=== PATIENT | female | born 1975 | race Caucasian/White ===

== ENCOUNTER → 2018-06-06 09:56 | Outpatient (CLI) | payer OTHER, SELFPAY ==
[2018-06-06 13:15] LABS: TSH w/ Reflex to FT4 1.96 uIU/mL (0.47-4.68)
== END ==
PROVIDERS: Family Provider Family Medicine; PCP Family Medicine; Visit Provider Family Medicine
DX: E03.9 Hypothyroidism, unspecified (principal)
CPT/HCPCS: 36415; 84443

== ENCOUNTER → 2019-01-03 11:08 | Outpatient (CLI) | payer OTHER, SELFPAY ==
[2019-01-03 12:54] LABS: Thyroid Stimulating Hormone 3.93 uIU/mL (0.47-4.68)
== END ==
PROVIDERS: PCP Family Medicine; Visit Provider Family Medicine
DX: E03.9 Hypothyroidism, unspecified (principal); Z34.90 Encounter for supervision of normal pregnancy, unspecified, unspecified trimester
CPT/HCPCS: 36415; 84443

== ENCOUNTER → 2019-01-28 11:54 | Outpatient (CLI) | payer OTHER, SELFPAY ==
[2019-01-28 12:17] LABS: Add Manual Diff / Slide Review NO; Basophils Absolute Auto 0 /uL (0-100); Basophils Percent Auto 0.4 % (0-2); Eosinophils Absolute Auto 0 /uL (0-450); Eosinophils Percent Auto 0.2 % (2-4); Hematocrit 40.6 % (36-46); Hemoglobin 13.6 g/dL (12.0-16.0); Lymphocytes Absolute Auto 1000 /uL (1100-4500); Lymphocytes Percent Auto 9.1 % (25-40); Mean Corpuscular HGB Conc 33.6 % (30-36); Mean Corpuscular Hemoglobin 30.1 PG (26-34); Mean Corpuscular Volume 89.6 fL (80-100); Monocytes Absolute Auto 500 /uL (0-900); Monocytes Percent Auto 4.1 % (3-14); Neutrophils Absolute Auto 9700 /uL (1500-7000); Neutrophils Percent Auto 86.2 % (50-75); Platelet Count 247 X10^3/uL (150-400); Red Blood Cell Count 4.53 X10^6/uL (4.0-5.2); Red Cell Distribution Width 13.4 % (11.6-14.8); White Blood Cell Count 11.2 X10^3/uL (4.5-11.0)
[2019-01-28 12:22] LABS: Appearance Urine UA CLEAR; Bilirubin Urine UA NEGATIVE (NEGATIVE); Color Urine UA YELLOW; Glucose Urine UA NEGATIVE (Negative); Ketones Urine UA NEGATIVE (NEGATIVE); Leukocyte Esterase Urine UA NEGATIVE (NEGATIVE); Nitrite Urine UA NEGATIVE (Negative); Occult Blood Urine UA NEGATIVE (Negative); Protein Urine UA 1+ (Negative); Specific Gravity Urine UA >=1.030 (1.000-1.035); Urobilinogen Urine UA 0.2 E.U./dL (0.2)
[2019-01-28 14:14] LABS: Free T4, Direct Thyroxine 1.09 ng/dL (0.78-2.19)
[2019-01-28 14:28] LABS: Thyroid Stimulating Hormone 3.55 uIU/mL (0.47-4.68)
[2019-01-28 16:56] LABS: Hepatitis B Surface Antigen NEGATIVE s/c (NEGATIVE)
[2019-01-28 16:57] LABS: Rubella Antibody IgG 55.6 IU/mL (>15)
[2019-01-28 17:15] LABS: HIV 1 and 2 Antibody NEGATIVE (NEGATIVE); Hep C Virus Ab w/Reflex Quant NEGATIVE s/c (NEGATIVE)
[2019-01-30 14:57] LABS: RPR Screen Nonreactive (Nonreactive)
== END ==
PROVIDERS: PCP Family Medicine; Visit Provider Obstetrics & Gynecology
DX: Z34.81 Encounter for supervision of other normal pregnancy, first trimester (principal); E03.9 Hypothyroidism, unspecified
CPT/HCPCS: 36415; 80055; 81003; 84439; 84443; 86703; 86787; 86803; 86850; 86900; 86901; 87086

== ENCOUNTER → 2019-02-11 13:00 | Outpatient (CLI) | payer OTHER, SELFPAY ==
[2019-02-11 16:00] LABS: Free T4, Direct Thyroxine 1.15 ng/dL (0.78-2.19)
[2019-02-11 16:14] LABS: Thyroid Stimulating Hormone 2.72 uIU/mL (0.47-4.68)
== END ==
PROVIDERS: PCP Family Medicine; Visit Provider Obstetrics & Gynecology
DX: E03.9 Hypothyroidism, unspecified (principal)
CPT/HCPCS: 36415; 84439; 84443

== ENCOUNTER → 2019-02-25 12:23 | Outpatient (CLI) | payer OTHER, SELFPAY ==
[2019-02-25 14:10] LABS: Free T4, Direct Thyroxine 1.03 ng/dL (0.78-2.19)
[2019-02-25 14:24] LABS: TSH w/ Reflex to FT4 2.13 uIU/mL (0.47-4.68); Thyroid Stimulating Hormone 2.16 uIU/mL (0.47-4.68)
== END ==
PROVIDERS: PCP Family Medicine; Visit Provider Obstetrics & Gynecology
DX: E03.9 Hypothyroidism, unspecified (principal)
CPT/HCPCS: 36415; 84439; 84443

== ENCOUNTER → 2019-03-27 09:14 | Outpatient (CLI) | payer OTHER, SELFPAY ==
[2019-03-27 11:53] LABS: Free T4, Direct Thyroxine 1.01 ng/dL (0.78-2.19)
[2019-03-27 12:07] LABS: Thyroid Stimulating Hormone 2.04 uIU/mL (0.47-4.68)
[2019-04-02 09:36] LABS: AFP, Serum 29.2 ng/mL; Calc Gestational Age 16.3; Cigarette Smoker N; Donated Egg NOT GIVEN; Donor Egg Age NOT GIVEN; Estriol, Free 0.74 ng/mL; Inhibin A, Dimeric 157 pg/mL; Maternal Weight 212 lbs; Number of Fetuses 1; Previous Pregnancy Down Syndro NOT GIVEN; hCG, MoM 2.42; hCG, Serum 64.7 IU/mL
== END ==
PROVIDERS: PCP Family Medicine; Visit Provider Obstetrics & Gynecology
DX: Z34.82 Encounter for supervision of other normal pregnancy, second trimester (principal); Z3A.16 16 weeks gestation of pregnancy; E03.9 Hypothyroidism, unspecified
CPT/HCPCS: 36415; 82105; 82677; 84439; 84443; 84702; 86336

== ENCOUNTER → 2019-04-22 10:45 | Outpatient (CLI) | payer OTHER, SELFPAY ==
--- NOTE | 2019-04-22 10:47 | DI.US.S_ITS ---
PROCEDURE: US OB >= 14 WEEKS FETUS INDICATIONS: Anatomy Survey OUTSIDE/PRIOR DATING DATA: Last menstrual period (LMP): Unknown. LMP-based estimated date of delivery (ANTHONY): N./A. First dating scan (date and location): 01/29/19. Estimated date of delivery (ANTHONY) from first dating scan: 09/13/19. TECHNIQUE: Real-time scanning was performed of the fetus, with image documentation and biometric measurements. Endovaginal scanning: No COMPARISON: None. FINDINGS: General: A single living intrauterine gestation is present. Presentation: Variable. Placenta: Placental position is right fundal, without previa. Amniotic fluid index: 12.7 cm, normal range is 5-24 cm. heart rate: 137 beats per minute. Maternal cervical canal: 4.6 cm long. Normal lower limit is 2.5 cm. biometrics: Biparietal diameter: 20 weeks 5 days Head circumference: 20 weeks 3 days Abdominal circumference: 20 weeks 6 days Femur length: 19 weeks 3 days Estimated gestational age from initial scan: 19 weeks 3 days Composite gestational age from present scan: 20 weeks 1 day Estimated weight and percentile: 342 g; 89th percentile Measurement variability for biometric dating: +/- 7 days from 14 weeks to 15 weeks 6 days gestation, +/- 10 days from 16 weeks to 21 weeks 6 days gestation, +/- 2 weeks from 22 weeks to 27 weeks 6 days gestation, +/- 3 weeks for 28 weeks gestation or later. weight reference: 4500 g or EFW >90/95% is considered macrosomia or large for gestational age. EFW <10% is small for gestational age. EFW 5% or less is considered intra-uterine growth restriction. Anatomic survey: Neuro: Ventricles are non-dilated at less than 10 mm. Cisterna magna is normal at 3-11 mm. Cerebellum is normal in size and morphology. Nuchal skin fold: Normal at less than 6 mm between 14-21 weeks gestational age. Face: Nose and lips, facial profile are normal. Spine: No evidence for spina bifida. Heart: 4-chambered heart is present, with normal ventricular outflow tracts. Diaphragm: Diaphragm is intact. Stomach: Left-sided stomach is present. Kidneys: No hydronephrosis. Normal is less than 5 mm in 2nd trimester, less than 7 mm in 3rd trimester. Cord: 3-vessel cord has orthotopic insertion. Marginal cord insertion near the placental edge. Bladder: Normal in size. Extremities: All 4 extremities identified. IMPRESSION: 1. Single living IUP redemonstrated and interval growth is upper limits of normal. 2. Marginal placental cord insertion; otherwise normal anatomic survey. Dictated by: Vasquez Rao [facility] Interpreted: Alec Nicolas MD on 04/22/2019 at 11:50 Approved by: Alec Nicolas M.D. on 04/22/2019 at 14:46
== END ==
PROVIDERS: PCP Family Medicine; Visit Provider Obstetrics & Gynecology
DX: O99.282 Endocrine, nutritional and metabolic diseases complicating pregnancy, second trimester (principal); E03.9 Hypothyroidism, unspecified; Z36.89 Encounter for other specified antenatal screening; Z3A.20 20 weeks gestation of pregnancy
CPT/HCPCS: 36415; 76811; 84439; 84443

== ENCOUNTER → 2019-04-22 12:16 | Outpatient (CLI) | payer OTHER, SELFPAY ==
[2019-04-22 13:47] LABS: Free T4, Direct Thyroxine 0.95 ng/dL (0.78-2.19)
[2019-04-22 14:01] LABS: Thyroid Stimulating Hormone 1.46 uIU/mL (0.47-4.68)
== END ==
PROVIDERS: PCP Family Medicine; Visit Provider Obstetrics & Gynecology
DX: E03.9 Hypothyroidism, unspecified (principal)
CPT/HCPCS: 36415; 84439; 84443

== ENCOUNTER → 2019-05-20 08:43 | Outpatient (CLI) | payer OTHER, SELFPAY ==
[2019-05-20 10:45] LABS: Hematocrit 36.2 % (36-46); Hemoglobin 12.2 g/dL (12.0-16.0)
[2019-05-20 12:01] LABS: GTT (PREG) 1 Hour PP 50gm Dose 111 mg/dL (76-139)
[2019-05-20 12:21] LABS: Free T4, Direct Thyroxine 0.85 ng/dL (0.78-2.19)
== END ==
PROVIDERS: PCP Family Medicine; Visit Provider Obstetrics & Gynecology
DX: Z34.82 Encounter for supervision of other normal pregnancy, second trimester (principal); E03.9 Hypothyroidism, unspecified
CPT/HCPCS: 36415; 82950; 84439; 84443; 85014; 85018

== ENCOUNTER → 2019-06-11 11:37 | Outpatient (CLI) | payer OTHER, SELFPAY | PROVIDERS: PCP Family Medicine; Visit Provider Obstetrics & Gynecology | DX: E03.9 Hypothyroidism, unspecified (principal) | CPT/HCPCS: 36415; 84439; 84443 ==

== ENCOUNTER → 2019-07-10 11:15 | Outpatient (CLI) | payer OTHER, SELFPAY ==
[2019-07-10 12:50] LABS: Free T4, Direct Thyroxine 0.81 ng/dL (0.78-2.19)
[2019-07-10 13:04] LABS: Thyroid Stimulating Hormone 1.16 uIU/mL (0.47-4.68)
== END ==
PROVIDERS: PCP Family Medicine; Visit Provider Obstetrics & Gynecology
DX: E03.9 Hypothyroidism, unspecified (principal)
CPT/HCPCS: 36415; 84439; 84443

== ENCOUNTER → 2019-08-07 10:13 | Outpatient (CLI) | payer OTHER, SELFPAY ==
[2019-08-07 11:32] LABS: Free T4, Direct Thyroxine 0.92 ng/dL (0.78-2.19)
== END ==
PROVIDERS: PCP Family Medicine; Visit Provider Obstetrics & Gynecology
DX: E03.9 Hypothyroidism, unspecified (principal)
CPT/HCPCS: 36415; 84439; 84443

== ENCOUNTER → 2019-08-09 13:47 | Outpatient (CLI) | payer OTHER, SELFPAY ==
[2019-08-10 16:21] LABS: Strep Grp B PCR POS for Grp B Strep
== END ==
PROVIDERS: PCP Family Medicine; Visit Provider Obstetrics & Gynecology
DX: Z34.83 Encounter for supervision of other normal pregnancy, third trimester (principal); Z36.85 Encounter for antenatal screening for Streptococcus B; Z3A.35 35 weeks gestation of pregnancy
CPT/HCPCS: 87653

== ENCOUNTER 2019-08-31 06:04 | Inpatient (IN) | payer OTHER, SELFPAY ==
[2019-08-31] MEDS: PENICILLIN G POTASSIUM 5,000,000 UNIT in DEXTROSE 5% IN WATER 250 ML IV (08:58)
[2019-08-31] MEDS: LACTATED RINGERS 1,000 ML 100 ML IV ×2 (08:58→10:58)
[2019-08-31 09:09] LABS: Add Manual Diff / Slide Review NO; Basophils Absolute Auto 0 /uL (0-100); Basophils Percent Auto 0.3 % (0-2); Eosinophils Absolute Auto 100 /uL (0-450); Eosinophils Percent Auto 0.6 % (2-4); Hematocrit 40.6 % (36-46); Hemoglobin 13.6 g/dL (12.0-16.0); Lymphocytes Absolute Auto 1900 /uL (1100-4500); Lymphocytes Percent Auto 13.8 % (25-40); Mean Corpuscular HGB Conc 33.6 % (30-36); Mean Corpuscular Hemoglobin 29.7 PG (26-34); Mean Corpuscular Volume 88.5 fL (80-100); Monocytes Absolute Auto 800 /uL (0-900); Monocytes Percent Auto 5.7 % (3-14); Neutrophils Absolute Auto 11100 /uL (1500-7000); Neutrophils Percent Auto 79.6 % (50-75); Platelet Count 158 X10^3/uL (150-400); Red Blood Cell Count 4.58 X10^6/uL (4.0-5.2); Red Cell Distribution Width 13.6 % (11.6-14.8)
[2019-08-31] MEDS: FENT 2MCG/ML BUPIV 0.125% EPI 200 MCG/100 ML PLAST..BAG 12 MCG EPIDURAL (09:30)
[2019-08-31] MEDS: fentaNYL 100 MCG/2 ML INJ (09:30)
[2019-08-31] MEDS: PENICILLIN G POTASSIUM 3,000,000 UNIT/50 ML FROZ.PIGGY 100 UNIT IV (13:01)
--- NOTE | 2019-08-31 13:07 | PM.OBHP.1 ---
OB HPI Date/Time Date of admission: 08/30/19 Date Patient Seen: 08/31/19 Time Patient Seen: 10:30 History of Present Condition Chief complaint: Labor : 3 Para: 2 Estimated Date of Delivery: 09/09/19 Estimated Gestational Age (weeks): 38+4 Narrative: Shana Umana is a 43 year old female 3 para 2 who presented early this morning with suspected rupture of membranes. She was not ruptured but was in active labor. History of Present care: good care, initiated at week # (8) and number of visits (10) Dating criteria: LMP confirmed by 1st trimester US Ultrasounds: normal 1st trimester US and abnormal US findings (Marginal cord insertion) Obstetrical complications: none Medical complications: none Preadmission Labs Blood type: B (+) positive -: Antibody screen: negative, GBS status: positive, HBsAG: negative, HIV: negative and RPR/VDLR: negative -: Chlamydia screen: not detected and Gonorrhea screen: not detected -: Rubella: immune and Varicella: immune HCT: 36.2 HCAB: negative PAP: Normal Quad screen: Normal Urine: Negative 1 hr GTT: 111 Prior (ies) History: 2 pph with first, retained placenta with second Evaluation Evaluation Baseline heart rate: 140 Variability: Moderate (11-25) monitor accelerations: Present monitor decelerations: Absent Contraction Frequency (minutes): 4 Uterine Contraction Intensity: Moderate Category of Tracing: I Cervical dilation (cm): 6 Cervical effacement (%): 100 station: -2 Laboratory results: Laboratory Tests 08/31/19 08/31/19 08:50 08:50 WBC 14.0 H RBC 4.58 Hgb 13.6 Hct 40.6 MCV 88.5 MCH 29.7 MCHC 33.6 RDW 13.6 Plt Count 158 Neut % (Auto) 79.6 H Lymph % (Auto) 13.8 L [place] % (Auto) 5.7 Eos % (Auto) 0.6 L Baso % (Auto) 0.3 Neut # (Auto) 92796 H Lymph # (Auto) 1900 [place] # (Auto) 800 Eos # (Auto) 100 Baso # (Auto) 0 Blood Type B Positive Antibody Screen Negative PFSH Social History Smoking Status: Never smoker Meds Home Medications and Allergies Home Medications Medication Instructions Recorded Confirmed Type levothyroxine 150 mcg capsule 150 mcg PO DAILY #90 cap 06/11/19 Rx nystatin-triamcinolone 100,000 1 applictn TOP BID #30 gram 07/03/19 Rx unit/gram-0.1 % topical ointment codeine 10 mg-guaifenesin 100 mg/5 10 ml PO Q4-6H PRN #236 ml 07/24/19 07/24/19 Rx mL oral liquid levothyroxine 25 mcg tablet 25 mcg PO DAILY #45 tab 08/26/19 08/26/19 Rx Allergies Allergy/AdvReac Type Severity Reaction Status Date / Time Sulfa (Sulfonamide Allergy Mild HIVES Verified 08/31/19 12:06 Antibiotics) [SULFA (SULFONAMIDE ANTIBIOTICS)] Exam Vital Signs (past 8 hours): Generally: Patient comfortable with epidural Lungs: Clear to auscultation bilaterally Cardiovascular: Regular rate and rhythm Fundal height: 40 cm Estimated weight: 8-1/2 lb Extremities: Negative Homans, no edema Objective Labs Result Diagrams: 08/31/19 08:50 Labs: Laboratory Results - last 24 hr 08/31/19 08/31/19 08:50 08:50 WBC 14.0 H RBC 4.58 Hgb 13.6 Hct 40.6 MCV 88.5 MCH 29.7 MCHC 33.6 RDW 13.6 Plt Count 158 Neut % (Auto) 79.6 H Lymph % (Auto) 13.8 L [place] % (Auto) 5.7 Eos % (Auto) 0.6 L Baso % (Auto) 0.3 Neut # (Auto) 52214 H Lymph # (Auto) 1900 [place] # (Auto) 800 Eos # (Auto) 100 Baso # (Auto) 0 Blood Type B Positive Antibody Screen Negative Assessment and Plan Assessment and Plan Assessment and Plan narrative: Assessment: 43-year-old 3 para 2 at 38-,4/7 weeks gestation in active labor GBS positive, status post 1 dose of antibiotics Status post epidural placement History of hemorrhage History of retained placenta requiring a D&C Plan: Artificial rupture of membranes with thick meconium-stained amniotic fluid Expected management to spontaneous vaginal delivery Time Spent with Patient Total time spent with greater than 50% in coordination of care (as documented) at patient's floor/unit and/or counseling patient:: 15-24 minutes
[2019-08-31] MEDS: OXYTOCIN 10 UNIT/ML VIAL 20 UNIT (13:50)
--- NOTE | 2019-08-31 14:26 | PM.OBPRVD ---
Labor & Delivery Delivery date: 08/31/19 Intrapartal events: None Cervical ripening method: none Induction method: none Delivery augmentation: rupture of membranes Delivery monitor: external FHT and external uterine Route of delivery: Episiotomy description: None L&D Laceration Description: None Estimated blood loss (mL): 200 Anesthesia type: Epidural Complications: None Narrative: Patient complete and pushed for 15 minutes. At 1:37 p.m., a live male infant delivered spontaneously over an intact perineum. No nuchal cord. The remainder of the body delivered without difficulty and was placed on mom's abdomen. Pitocin was given in the IV fluids as well as IM. After the cord stopped pulsing, the cord was double clamped and cut. Cord bloods were obtained. The placenta delivered at 1:52 p.m.. The piece of placenta that came out was very small. Uterine exploration was done manually and 2 more pieces of placenta were removed. The uterus was then firm. Estimated blood loss 200 cc. Epidural analgesia. No lacerations. . Apgars 8 at 1 minute and 9 at 5 minutes. Mom and stable to recovery. Plan for aftercare: To routine care
[2019-08-31] MEDS: IBUPROFEN 600 MG TABLET PO ×2 (15:58→21:45)
[2019-08-31] MEDS: OXYCODONE/ACETAMINOPHEN 5/325 TABLET 1 TAB PO (20:57)
[2019-09-01] MEDS: IBUPROFEN 600 MG TABLET PO (04:12)
[2019-09-01] MEDS: OXYCODONE/ACETAMINOPHEN 5/325 TABLET 1 TAB PO ×2 (04:13→08:50)
[2019-09-01 04:57] LABS: Hematocrit 36.6 % (36-46); Hemoglobin 12.6 g/dL (12.0-16.0)
[2019-09-01] MEDS: LEVOTHYROXINE 100 MCG TABLET 200 MCG PO (06:59)
[2019-09-01] MEDS: PRENATAL VIT,CALC/IRON/FOLIC 1 TABLET 1 TAB PO (08:49)
[2019-09-01] MEDS: DOCUSATE 250 MG CAPSULE PO (08:49)
[2019-09-01] MEDS: KETOROLAC 30 MG/ML VIAL IV (10:25)
[2019-09-01 12:37] VITALS: BP 124/76; PULSE 88; RESP 18; TEMP 36.7
== END 2019-09-01 15:10 | disposition home or self-care (01) | DRG 807 ==
PROVIDERS: Admitting Provider Obstetrics & Gynecology; PCP Family Medicine; Visit Provider Obstetrics & Gynecology
DX: O99.824 Streptococcus B carrier state complicating childbirth (principal); Z37.0 Single live birth; Z3A.38 38 weeks gestation of pregnancy; O77.0 Labor and delivery complicated by meconium in amniotic fluid
CPT/HCPCS: 01967; 36415; 59050; 59400; 84112; 85014; 85018; 85025; 86850; 86900; 86901; G0379; J1885; J2540; J2590; J3010

== ENCOUNTER → 2019-09-18 12:12 | Outpatient (CLI) | payer OTHER, SELFPAY ==
[2019-09-18 13:53] LABS: Free T4, Direct Thyroxine 1.69 ng/dL (0.78-2.19)
[2019-09-18 14:07] LABS: Thyroid Stimulating Hormone 0.03 uIU/mL (0.47-4.68)
== END ==
PROVIDERS: PCP Family Medicine; Visit Provider Obstetrics & Gynecology
DX: E03.9 Hypothyroidism, unspecified (principal)
CPT/HCPCS: 36415; 84439; 84443

== ENCOUNTER → 2019-10-21 16:22 | Outpatient (CLI) | payer OTHER, SELFPAY ==
[2019-10-21 18:15] LABS: Free T4, Direct Thyroxine 1.24 ng/dL (0.78-2.19)
== END ==
PROVIDERS: PCP Family Medicine; Visit Provider Obstetrics & Gynecology
DX: E03.9 Hypothyroidism, unspecified (principal)
CPT/HCPCS: 36415; 84439

== ENCOUNTER → 2019-11-15 15:44 | Outpatient (CLI) | payer OTHER, SELFPAY ==
[2019-11-15 17:39] LABS: Free T3, Triiodothyronine Free 4.01 pg/mL (2.77-5.27)
[2019-11-15 17:52] LABS: TSH w/ Reflex to FT4 < 0.02 uIU/mL (0.47-4.68)
[2019-11-15 18:36] LABS: Free T4, Direct Thyroxine 1.36 ng/dL (0.78-2.19)
== END ==
PROVIDERS: PCP Family Medicine; Visit Provider Family Medicine
DX: E03.9 Hypothyroidism, unspecified (principal)
CPT/HCPCS: 36415; 84439; 84443; 84481

== ENCOUNTER → 2019-11-19 08:53 | Outpatient (CLI) | payer OTHER, SELFPAY ==
--- NOTE | 2019-11-19 08:55 | DI.US.S_ITS ---
PROCEDURE: US PELVIC COMPLETE INDICATIONS: BLEEDING AND CRAMPING WITH IUD TECHNIQUE: Real-time scanning was performed of the pelvic organs, with image documentation. Additional endovaginal scanning was necessary due to incomplete visualization of the adnexal and endometrial structures by transabdominal scanning. COMPARISON: None. FINDINGS: Transabdominal scanning: Limited scanning through the kidneys shows no hydronephrosis. No pathologic free abdominal or pelvic fluid. Endovaginal scanning: Uterus: Uterus is anteverted and measures 7.7 x 4.0 x 5.5 cm. The endometrium measures 5 mm in combined thickness and appears heterogeneous with punctate foci of hyperechogenicity. An IUD is present but suboptimally visualized. Ovaries: Right ovary measures 3.5 x 1.5 x 1.8 cm and demonstrates normal echotexture. Left ovary measures 2.3 x 1.8 x 1.4 cm. There is a slightly complex 2.8 x 1.9 x 2.4 cm cyst in the left ovary with internal septa. IMPRESSION: 1. The endometrial thickness is normal. IUD is present but suboptimally visualized. 2. A complex cyst in the left ovary. Followup ultrasound imaging is suggested in 6-12 weeks. Dictated by: Chayito Kumar M.D. on 11/19/2019 at 11:40 Approved by: Chayito Kumar M.D. on 11/19/2019 at 18:04
== END ==
PROVIDERS: PCP Family Medicine; Visit Provider Family Medicine
DX: R10.2 Pelvic and perineal pain (principal); N83.292 Other ovarian cyst, left side; Z97.5 Presence of (intrauterine) contraceptive device
CPT/HCPCS: 76830; 76856

== ENCOUNTER → 2019-12-23 12:35 | Outpatient (CLI) | payer OTHER, SELFPAY ==
[2019-12-23 14:23] LABS: Free T3, Triiodothyronine Free 3.67 pg/mL (2.77-5.27); Free T4, Direct Thyroxine 1.23 ng/dL (0.78-2.19)
[2019-12-23 14:37] LABS: Thyroid Stimulating Hormone < 0.02 uIU/mL (0.47-4.68)
[2019-12-23 15:55] LABS: Vitamin D 25 Hydroxy (D3) 56.4 ng/mL (30.0-100.0)
== END ==
PROVIDERS: PCP Family Medicine; Referring Provider Family Medicine; Visit Provider Family Medicine
DX: E03.9 Hypothyroidism, unspecified (principal); E55.9 Vitamin D deficiency, unspecified
CPT/HCPCS: 36415; 82306; 84439; 84443; 84481

== ENCOUNTER → 2020-01-16 08:59 | Outpatient (CLI) | payer OTHER, SELFPAY ==
--- NOTE | 2020-01-16 | DI.US.S_ITS ---
PROCEDURE: US PELVIC COMPLETE INDICATIONS: 8 WEEK FOLLOW UP TECHNIQUE: Real-time scanning was performed of the pelvic organs, with image documentation. Additional endovaginal scanning was necessary due to incomplete visualization of the adnexal and endometrial structures by transabdominal scanning. COMPARISON: [facility], , US PELVIC COMPLETE, 11/19/2019, 9:09. FINDINGS: Transabdominal scanning: Limited scanning through the kidneys shows no hydronephrosis. No pathologic free abdominal or pelvic fluid. Endovaginal scanning: Uterus: Uterus is normal in size at 6.3 x 4.1 x 5.2 cm. The endometrium measures 5 mm in combined thickness. Intrauterine device in expected position. Ovaries: Ovaries are normal and the mildly complex left ovarian cyst seen on prior examination has resolved. IMPRESSION: Resolved complex left ovarian cyst. Dictated by: Vasquez Rao [facility] Interpreted: Chayito Kumar MD on 01/16/2020 at 11:03 Approved by: Chayito Kumar M.D. on 01/16/2020 at 11:56
== END ==
PROVIDERS: PCP Family Medicine; Referring Provider Family Medicine; Visit Provider Family Medicine
DX: N83.292 Other ovarian cyst, left side (principal)
CPT/HCPCS: 76830; 76856

== ENCOUNTER → 2020-04-21 09:57 | Outpatient (CLI) | payer OTHER, SELFPAY ==
[2020-04-21 12:32] LABS: Free T3, Triiodothyronine Free 4.85 pg/mL (2.77-5.27); Free T4, Direct Thyroxine 1.41 ng/dL (0.78-2.19)
[2020-04-21 12:45] LABS: Thyroid Stimulating Hormone < 0.02 uIU/mL (0.47-4.68)
== END ==
PROVIDERS: PCP Family Medicine; Referring Provider Family Medicine; Visit Provider Family Medicine
DX: E03.9 Hypothyroidism, unspecified (principal)
CPT/HCPCS: 36415; 84439; 84443; 84481

== ENCOUNTER → 2020-06-01 14:12 | Outpatient (CLI) | payer OTHER, SELFPAY ==
[2020-06-01 16:47] LABS: Free T3, Triiodothyronine Free 4.05 pg/mL (2.77-5.27); Free T4, Direct Thyroxine 1.41 ng/dL (0.78-2.19)
[2020-06-01 17:01] LABS: Thyroid Stimulating Hormone < 0.02 uIU/mL (0.47-4.68)
== END ==
PROVIDERS: PCP Family Medicine; Referring Provider Family Medicine; Visit Provider Family Medicine
DX: E03.9 Hypothyroidism, unspecified (principal); R53.83 Other fatigue; R63.5 Abnormal weight gain
CPT/HCPCS: 36415; 84439; 84443; 84481

== ENCOUNTER → 2020-06-12 09:36 | Outpatient (CLI) | payer OTHER, SELFPAY ==
--- NOTE | 2020-06-12 09:40 | DI.RAD.S_ITS ---
PROCEDURE: XR FOOT RT MIN 3V INDICATIONS: pain in R foot TECHNIQUE: 3 views of the foot were acquired. COMPARISON: None. FINDINGS: Bones: No fractures or dislocations. No suspicious bony lesions. Soft tissues: No tibiotalar joint effusion. Achilles tendon appears normal. IMPRESSION: No trauma found, source of current pain is not identified. Dictated by: Alec Nicolas M.D. on 06/12/2020 at 16:31 Approved by: Alec Nicolas M.D. on 06/12/2020 at 16:32
[2020-06-12 10:43] LABS: Add Manual Diff / Slide Review NO; Basophils Absolute Auto 0 /uL (0-100); Basophils Percent Auto 0.4 % (0-2); Eosinophils Absolute Auto 100 /uL (0-450); Eosinophils Percent Auto 0.8 % (2-4); Hematocrit 45.1 % (36-46); Lymphocytes Absolute Auto 1900 /uL (1100-4500); Lymphocytes Percent Auto 23.6 % (25-40); Mean Corpuscular HGB Conc 33.2 % (30-36); Mean Corpuscular Hemoglobin 29.3 PG (26-34); Mean Corpuscular Volume 88.4 fL (80-100); Monocytes Absolute Auto 400 /uL (0-900); Monocytes Percent Auto 5.4 % (3-14); Neutrophils Absolute Auto 5500 /uL (1500-7000); Neutrophils Percent Auto 69.8 % (50-75); Platelet Count 201 X10^3/uL (150-400); Red Cell Distribution Width 13.3 % (11.6-14.8); White Blood Cell Count 7.9 X10^3/uL (4.5-11.0)
[2020-06-12 10:56] LABS: Alanine Aminotransferase 18 IU/L (<35); Albumin 4.5 g/dL (3.5-5.0); Albumin Globulin Ratio 1.7 (1.0-2.8); Alkaline Phosphatase 56 U/L (38-126); Aspartate Aminotransferase 23 IU/L (14-36); BUN Creatinine Ratio 19.5 (6-22); Bilirubin Total 0.8 mg/dL (0.2-1.3); Blood Urea Nitrogen 17 mg/dL (7-17); Calcium 9.9 mg/dL (8.4-10.2); Carbon Dioxide 29 mmol/L (22-32); Chloride 104 mmol/L (98-107); Estimated Glomerular Filt Rate > 60.0 mL/min (>60); Globulin 2.6 g/dL (1.7-4.1); Glucose 87 mg/dL (70-100); HEMOLYSIS < 15 (0-50); Potassium 4.4 mmol/L (3.4-5.1); Sodium 139 mmol/L (137-145); Total Protein 7.1 g/dL (6.3-8.2)
[2020-06-12 11:13] LABS: Free T3, Triiodothyronine Free 3.78 pg/mL (2.77-5.27); Free T4, Direct Thyroxine 1.43 ng/dL (0.78-2.19)
[2020-06-12 11:28] LABS: Thyroid Stimulating Hormone < 0.015 uIU/mL (0.47-4.68)
--- NOTE | 2020-06-12 14:54 | DI.MG.S_ITS ---
BILATERAL DIGITAL SCREENING MAMMOGRAM 3D/2D WITH CAD: 06/12/2020 CLINICAL: Baseline exam. Routine screening. No prior exams were available for comparison. The tissue of both breasts is heterogeneously dense. This may lower the sensitivity of mammography. Current study was also evaluated with a Computer Aided Detection (CAD) system. There is a focal asymmetry in the right breast at 10 o'clock posterior depth. No other significant masses, calcifications, or other findings are seen in either breast. IMPRESSION: INCOMPLETE: NEEDS ADDITIONAL IMAGING EVALUATION The focal asymmetry in the right breast is indeterminate. Additional views with possible ultrasound are recommended. This exam was interpreted at Station ID: [id number]. NOTE: For mammograms, a report in lay terms will be sent to the patient. Approximately 15% of breast malignancies will not be visualized mammographically. In the management of a palpable breast mass, a negative mammogram must not discourage biopsy of a clinically suspicious lesion. Electronically Signed By: Maisha zuñiga/:06/12/2020 15:50:44 letter sent: Additional Imaging Needed ACR BI-RADS Category 0: Incomplete 3340F
[2020-06-13 06:36] LABS: Thyroid Peroxidase Antibodies 133 IU/mL (0-34)
== END ==
PROVIDERS: PCP Family Medicine; Referring Provider Family Medicine; Visit Provider Family Medicine
DX: Z12.31 Encounter for screening mammogram for malignant neoplasm of breast (principal); M79.671 Pain in right foot; E03.9 Hypothyroidism, unspecified; R53.83 Other fatigue
CPT/HCPCS: 36415; 73630; 77063; 77067; 80053; 84439; 84443; 84481; 85025; 86376

== ENCOUNTER → 2020-06-13 09:08 | Outpatient (CLI) | payer OTHER, SELFPAY ==
[2020-06-13 10:29] LABS: Cholesterol 185 mg/dL (140-199); HDL Cholesterol 53 mg/dL (40-60); LDL Cholesterol Calculated 109 mg/dL (<100); Triglycerides 117 mg/dL (35-150)
== END ==
PROVIDERS: PCP Family Medicine; Visit Provider Family Medicine
DX: H02.63 Xanthelasma of right eye, unspecified eyelid (principal); H02.66 Xanthelasma of left eye, unspecified eyelid
CPT/HCPCS: 80061

== ENCOUNTER → 2020-07-09 09:30 | Outpatient (CLI) | payer OTHER, SELFPAY ==
--- NOTE | 2020-07-09 09:31 | DI.MG.S_ITS ---
UNILATERAL RIGHT DIGITAL DIAGNOSTIC MAMMOGRAM 3D/2D WITH ADDITIONAL VIEWS: 07/09/2020 CLINICAL: Additional evaluation requested from prior study. Comparison is made to exam dated: 06/12/2020 mammogram - [facility]. The tissue of right breast is heterogeneously dense. This may lower the sensitivity of mammography. The focal asymmetry in the right breast at 10 o'clock posterior depth is not seen in additional views. No other significant masses or calcifications are seen in the breast. IMPRESSION: BENIGN The focal asymmetry in the right breast seen on the screening mammogram likely respresents superimposed fibroglandular tissue and is benign. There is no mammographic evidence of malignancy. A 1 year screening mammogram is recommended. This exam was interpreted at Station ID: [id number]. NOTE: For mammograms, a report in lay terms will be sent to the patient. Approximately 15% of breast malignancies will not be visualized mammographically. In the management of a palpable breast mass, a negative mammogram must not discourage biopsy of a clinically suspicious lesion. Electronically Signed By: Maisha zuñiga/:07/09/2020 09:56:52 letter sent: Normal Exam ACR BI-RADS Category 2: Benign Finding(s) 3342F
== END ==
PROVIDERS: PCP Family Medicine; Referring Provider Family Medicine; Visit Provider Family Medicine
DX: R92.8 Other abnormal and inconclusive findings on diagnostic imaging of breast (principal); N64.89 Other specified disorders of breast
CPT/HCPCS: 77065; G0279

== ENCOUNTER → 2021-05-25 11:38 | Outpatient (CLI) | payer OTHER, SELFPAY ==
--- NOTE | 2021-05-25 11:40 | DI.CT.S_ITS ---
PROCEDURE: CT PEL WO CON INDICATIONS: Fracture of coccyx, initial encounter TECHNIQUE: Noncontrast 3 mm axial sections acquired through the bony pelvis, with coronal and sagittal reformatting. COMPARISON: [facility], CR, XR LUMBAR SPINE 2 OR 3 VIEWS, 03/16/2021, 16:00. [facility], CR, XR PELVIS WITH BILATERAL HIPS 5 VIEWS, 03/16/2021, 16:00. FINDINGS: Image quality: Excellent. Bones: No definite fracture is seen. There is curvilinear deformity of the coccyx although this appears chronic. Sacroiliac joints appear grossly intact. There is anatomic alignment. Scattered degenerative subchondral sclerosis and spurring. Incidentally noted partial sacralization of L5, on the left. Soft tissues: Incidentally noted IUD is seen. There is midline laxity of the anterior abdominal wall, with small fat containing periumbilical hernia Intrapelvic contents are otherwise unremarkable. IMPRESSION: No definite acute fracture identified. If the patient's pain or other symptoms persist, consider further evaluation with MRI Incidentally noted small fat containing periumbilical hernia. Dictated by: Raghu Troncoso M.D. on 05/25/2021 at 13:54 Approved by: Raghu Troncoso M.D. on 05/25/2021 at 14:01
== END ==
PROVIDERS: PCP Family Medicine; Referring Provider Student in an Organized Health Care Education/Training Program; Visit Provider Student in an Organized Health Care Education/Training Program
DX: S32.2XXA Fracture of coccyx, initial encounter for closed fracture (principal); K42.9 Umbilical hernia without obstruction or gangrene; X58.XXXA Exposure to other specified factors, initial encounter
CPT/HCPCS: 72192

== ENCOUNTER → 2022-03-02 11:06 | Outpatient (CLI) | payer OTHER, SELFPAY ==
--- NOTE | 2022-03-02 11:10 | DI.CT.S_ITS ---
PROCEDURE: CT SINUS SCREEN WO CON INDICATIONS: Chronic pansinusitis TECHNIQUE: Noncontrast 3.0 mm axial images acquired from the frontal sinuses to the mid-sella, with coronal and sagittal reformats. For radiation dose reduction, the following was used: automated exposure control, adjustment of mA and/or kV according to patient size. COMPARISON: None. FINDINGS: Image quality: Excellent. Sinuses: Mucous retention cyst versus polyp is present in the left maxillary sinus. No fluid levels are identified. Remaining sinuses are clear. Ostiomeatal Complexes: Ostiomeatal complexes are patent. Miscellaneous: Visualized intra-orbital contents are normal. No marilu bullosa or paradoxical turbinate curvature. Minimal leftward nasal septal deviation. IMPRESSION: Left maxillary mucous retention cyst versus polyp. No fluid levels. Ostiomeatal complexes are patent. Dictated by: Sunitha Rosenbaum M.D. on 03/02/2022 at 11:57 Approved by: Sunitha Rosenbaum M.D. on 03/02/2022 at 11:58
== END ==
PROVIDERS: PCP Registered Nurse; Referring Provider Otolaryngology; Visit Provider Otolaryngology
DX: J32.4 Chronic pansinusitis (principal)
CPT/HCPCS: 70486